=== PATIENT | female | born 1950 | race Caucasian/White ===

== ENCOUNTER 2024-06-30 08:16 | Outpatient (CLI) | payer BC | END 2024-06-30 08:17 | disposition home or self-care (01) | LOC: CSHSLEEP 08:16 | PROVIDERS: ATTEND Family Medicine | DX: R53.83 Other fatigue (principal); R06.83 Snoring; G47.33 Obstructive sleep apnea (adult) (pediatric) | CPT/HCPCS: 95811 ==